=== PATIENT | male | born 1975 | race Two or more races ===

== ENCOUNTER 2021-05-17 09:15 | Day surgery (SDC) | payer OTHER ==
[~2021-05-17] VITALS: Ht 180.3 cm; Wt 83.0 kg
[2021-05-17] MEDS ORDERED: PANT40TA6 PO (09:55)
[2021-05-17] MEDS ORDERED: PSYL0.5215 PO (09:55)
[2021-05-17 09:57] VITALS: BP 125/84
[2021-05-17 10:08] LABS: BASOPHILS % (AUTO) 1 % (0-1); EOSINOPHILS % (AUTO) 1 % (1-7); LYMPHOCYTES % (AUTO) 49 % (22-44); MEAN CORPUSCULAR HEMOGLOBIN 23.9 pg (27.5-34.5); MEAN CORPUSCULAR HGB CONC 31.8 g/dL (33.2-36.2); MEAN PLATELET VOLUME 7.4 fL (7.4-10.4); MONOCYTES % (AUTO) 13 % (2-9); NEUTROPHILS % (AUTO) 36 % (42-75); PLATELET COUNT 341 x10^3/uL (130-400); RED BLOOD COUNT 4.56 x10^6/uL (4.38-5.82); RED CELL DISTRIBUTION WIDTH 17.4 % (9.4-14.8)
[2021-05-17 10:19] LABS: ANION GAP 4 mmol/L (5-15); CALCIUM 9.1 mg/dL (8.5-10.1); CHLORIDE 109 mmol/L (98-107); CREATININE 0.76 mg/dL (0.7-1.3)
[2021-05-17] MEDS ORDERED: HEPARIN 1,000 UNITS/ML, 10ML ONE (13:10)
[2021-05-17] MEDS ORDERED: LIDOCAINE-MPF 1%, 5ML ONE (13:10)
[2021-05-17] MEDS ORDERED: VERAPAMIL 2.5 MG/ML, 2ML ONE (13:10)
[2021-05-17] MEDS ORDERED: TICAGRELOR 90 MG TABLET ONE (13:10)
[2021-05-17] MEDS ORDERED: BIVALIRUDIN 250 MG ONE (13:10)
[2021-05-17] MEDS ORDERED: FENTANYL PF 100 MCG/2ML ONE (13:10)
[2021-05-17] MEDS ORDERED: MIDAZOLAM 1 MG/ML, 5ML ONE (13:10)
== END 2021-05-17 15:35 | disposition home or self-care (01) ==
LOC: CACL 09:15
PROVIDERS: ATTEND Internal Medicine Cardiovascular Disease
DX: R94.39 Abnormal result of other cardiovascular function study (principal); I42.9 Cardiomyopathy, unspecified; Z79.899 Other long term (current) drug therapy
CPT/HCPCS: 36415; 80048; 85025; 93458; C1769; C1894; J1644; J2250; J3010; Q9967; 99156; J0583